=== PATIENT | female | born 1965 | race Caucasian/White ===

== ENCOUNTER → 2021-01-03 | Outpatient (CLI) | payer OTHER ==
[~2021-01-03] MED LIST: ASPIRIN 325MG325 MG PO; CYANOCOBAL1000 MCG/1 INJ; HYDROCODON-ACE1 EAC6 PO; IBU800 MG PO; VITAMIN C1000 MG PO; VOLTREN XR 100100 MG PO; ZITHROMAX250 MG PO; ZOCOR20 MG PO; ZOFRAN ODT 4 MG4 MG PO; ZOLOFT100 MG PO
== END ==
LOC: KOH-I 16:18
DX: Z01.818 Encounter for other preprocedural examination (principal); M17.11 Unilateral primary osteoarthritis, right knee
CPT/HCPCS: 73700

== ENCOUNTER → 2021-03-14 | Outpatient (CLI) | payer OTHER ==
[2021-03-14 12:00] LABS: HEMOGLOBIN 13.2 gm/dl (12.3-15.3); RED BLOOD COUNT 4.59 M/UL (4.00-5.10); WHITE BLOOD COUNT 5.3 K/UL (4.5-11.0)
[2021-03-14 12:28] LABS: BUN/CREATININE RATIO 11 (0-10)
== END ==
LOC: OPSV2 10:30 → EDSTATUS 10:30 → OPSV2 10:44
PROVIDERS: Orthopaedic Surgery
DX: Z01.812 Encounter for preprocedural laboratory examination (principal); Z01.810 Encounter for preprocedural cardiovascular examination; M17.11 Unilateral primary osteoarthritis, right knee
CPT/HCPCS: 36415; 80048; 81001; 85025; 87081; 93005

== ENCOUNTER → 2021-03-26 | Outpatient (CLI) | payer OTHER ==
[2021-03-26 16:40] LABS: BUN/CREATININE RATIO 15 (0-10)
== END ==
LOC: LAB 14:21
PROVIDERS: Orthopaedic Surgery
DX: Z01.812 Encounter for preprocedural laboratory examination (principal)
CPT/HCPCS: 36415; 80048; 86850; 86900; 86901

== ENCOUNTER 2021-03-27 09:24 | Day surgery (SDC) | payer OTHER ==
[~2021-03-27] VITALS: Ht 165.1 cm; Wt 88.5 kg
[~2021-03-27 09:24] MED LIST changes: -ASPIRIN 325MG325 MG PO; -HYDROCODON-ACE1 EAC6 PO
[2021-03-28 06:06] LABS: HEMOGLOBIN 11.9 gm/dl (12.3-15.3); RED BLOOD COUNT 4.19 M/UL (4.00-5.10)
[2021-03-28 06:22] LABS: BUN/CREATININE RATIO 15 (0-10)
[2021-03-28] MEDS ORDERED: ASPIRIN 325MG325 MG PO (09:09)
[2021-03-28] MEDS ORDERED: HYDROCODON-ACE1 EAC6 PO (12:39)
== END 2021-03-28 16:18 | disposition home or self-care (01) ==
LOC: OR 09:24 → EDSTATUS 14:30 → M/S 18:14 → OR 03-28 16:18
PROVIDERS: Orthopaedic Surgery
DX: M17.11 Unilateral primary osteoarthritis, right knee (principal); E78.5 Hyperlipidemia, unspecified; K21.9 Gastro-esophageal reflux disease without esophagitis; E07.9 Disorder of thyroid, unspecified; F41.9 Anxiety disorder, unspecified; F32.9 Major depressive disorder, single episode, unspecified; M19.90 Unspecified osteoarthritis, unspecified site; Z88.6 Allergy status to analgesic agent; Z88.5 Allergy status to narcotic agent; Z79.899 Other long term (current) drug therapy
CPT/HCPCS: 36415; 73560; 76000; 80048; 85027; 97161; 97166; 97530; C1776; J0171; J0690; J1100; J1170; J2001; J2250; J2405; J2550; J2704; J2795; J3010; J3420; J7120

== ENCOUNTER → 2021-12-04 | Outpatient (CLI) | payer OTHER ==
[~2021-12-04] MED LIST changes: +ASPIRIN 325MG325 MG PO; +HYDROCODON-ACE1 EAC6 PO
== END ==
LOC: KOH-I 09:24
DX: M25.572 Pain in left ankle and joints of left foot (principal); M19.072 Primary osteoarthritis, left ankle and foot
CPT/HCPCS: 73610; 73630

== ENCOUNTER → 2021-12-18 | Outpatient (CLI) | payer OTHER | LOC: MRI 12:34 → EXRD 12:34 | DX: Z13.820 Encounter for screening for osteoporosis (principal); M84.375A Stress fracture, left foot, initial encounter for fracture; R93.6 Abnormal findings on diagnostic imaging of limbs; M85.88 Other specified disorders of bone density and structure, other site | CPT/HCPCS: 73718; 77080 ==

== ENCOUNTER → 2022-05-21 | Outpatient (CLI) | payer OTHER | LOC: KOH-I 10:47 | DX: S92.902A Unspecified fracture of left foot, initial encounter for closed fracture (principal); M20.12 Hallux valgus (acquired), left foot; M20.42 Other hammer toe(s) (acquired), left foot; M77.52 Other enthesopathy of left foot and ankle | CPT/HCPCS: 73630 ==